=== PATIENT | male | born 1985 | race Caucasian/White ===

== ENCOUNTER 2016-11-02 10:39 | Emergency (ER) ==
[2016-11-02 10:45] VITALS: BP 131/83; TEMP 97; BMI 17.8
[2016-11-02] MEDS ORDERED: NORCO 10-325 PO STA (11:13)
[2016-11-02 11:32] LABS: BASOPHILS % (AUTO) 0.4 % (0.0-3.0); EOSINOPHILS % (AUTO) 0.4 % (0.0-7.0); HEMATOCRIT 41.6 % (42.0-52.0); HEMOGLOBIN 13.5 g/dl (14.0-18.0); IMMATURE GRANULOCYTE % (AUTO) 0.6 % (0.0-5.0); LYMPHOCYTES # (AUTO) 0.7 K/uL (0.60-3.4); MEAN CORPUSCULAR HEMOGLOBIN 30.3 pg (27.0-31.0); MEAN CORPUSCULAR HGB CONC 32.5 (31.8-35.4); MEAN CORPUSCULAR VOLUME 93.3 fl (80.0-94.0); MONOCYTES # (AUTO) 0.2 K/uL (0.4-2.0); MONOCYTES % (AUTO) 3.4 (0-10); NEUTROPHILS # (AUTO) 4.3 K/ul (2.0-6.9); NEUTROPHILS % (AUTO) 81.2; PLATELET COUNT 258 10^3/uL (140-440); RED BLOOD COUNT 4.46 10^6/ul (4.70-6.10)
[2016-11-02 11:48] LABS: FLU INTERNAL QC INTERNAL QC VALID; RAPID FLU A NEGATIVE (NEGATIVE); RAPID FLU B NEGATIVE (NEGATIVE)
[2016-11-02 11:52] LABS: ALBUMIN 4.5 g/dL (3.4-5.0); ALBUMIN/GLOBULIN RATIO 1.73; BILIRUBIN,TOTAL 0.52 mg/dL (0.00-1.20); BUN/CREATININE RATIO 13.63; CALCIUM 10.4 mg/dL (8.2-10.2); CREATININE 0.88 mg/dL (0.60-1.10); TOTAL PROTEIN 7.1 g/dL (6.4-8.2)
--- NOTE | 2016-11-02 12:32 | ED.PDOC ---
General ED Provider: Dr. ZECHARIAH WELSH Chief Complaint: Headache Stated Complaint: headache Time Seen by Physician: 11:00 (flu like symp but headache is new ) Mode of Arrival: Walk-In Information Source: Patient Exam Limitations: No limitations [facility] and Triage Documentation Reviewed and Agree: Yes (no trauma no neck pain ) Neurological Complaint Exam - Headache Complaint/Exam Onset: Gradual Duration: 2 days Symptoms Are: Still present Timing: Intermittent Episodes Lasting: Days Worst Headache Ever: No Initial Severity: Moderate Current Severity: Moderate Location: Diffuse Character: Reports: Typical headache Aggravating: Reports: None Alleviating: Reports: None Associated Signs and Symptoms: Denies: Dizziness, Seizure, Nausea, Vomiting, Sinus pressure, Fever, Neck pain, Neck stiffness, Decreased LOC, Visual changes Related History: Reports: Similar episode Related Surgical History: Reports: None SAH Risk Factors: Reports: None Meningitis Risk Factors: Reports: None SDH Risk Factors: Reports: None Temporal Arteritis Risk Factors: Reports: None Normal Head CT Within Last 12 Months: No Fundoscopic Exam: Present: Normal Findings Papilledema Present: No Temporal Artery Tenderness: Present: None Sinus Tenderness: Present: None TMJ Tenderness: Present: None Glascow Coma Scale (see protocol): 15 Meningeal Signs Positive: No Pain on Passive Flexion-Positive Kernig's: No ROM Limited In: No Limitiations Focal Weakness: Present: None Focal Sensory Loss: Present: None Gait: Normal Nystagmus Present: No Gag Reflex Present: Yes Babinski Sign: Negative Right, Negative Left Differential Diagnoses: Viral Syndrome Review of Systems - Review Of Systems Constitutional: Reports: Malaise Eyes: Reports: No symptoms Ears, Nose, Mouth, Throat: Reports: No symptoms Respiratory: Reports: Cough Cardiac: Reports: No symptoms GI: Reports: No symptoms : Reports: No symptoms Musculoskeletal: Reports: No symptoms Skin: Reports: No symptoms Neurological: Reports: Headache Endocrine: Reports: No symptoms Hematologic/Lymphatic: Reports: No symptoms All Other Systems: Reviewed and Negative Past Medical History - Past Medical History Endocrine: Reports: None Cardiovascular: Reports: None Respiratory: Reports: COPD, Asthma, Bronchitis Hematological: Reports: None Gastrointestinal: Reports: None Genitourinary: Reports: Kidney stones, Other (states same partner for two years no concern of STDs) Neuro/Psych: Reports: Anxiety, Depression, Bipolar Disorder, Schizophrenia, PTSD , Other (7 years clean) Musculoskeletal: Reports: Back Pain Cancer: Reports: None Other Pertinent Past Medical History: bronchitis, severe depression, PTSD, EED, paranoid schiz. - Surgical History General Surgical History: Reports: None - Family History Family History: Reports: Unknown - Social History Smoking Status: Heavy tobacco smoker Hx Substance Use: No Alcohol Screening: None Physical Exam - Physical Exam Appearance: Well-appearing, No pain distress, Well-nourished Eyes: DARIUS, EOMI, Conjunctiva clear ENT: Ears normal, Nose normal, Oropharynx normal Respiratory: Airway patent, Breath sounds clear, Breath sounds equal, Respirations nonlabored Cardiovascular: RRR, Pulses normal, No rub, No murmur GI/: Soft, Nontender, No masses, Bowel sounds normal, No Organomegaly Musculoskeletal: Normal strength, ROM intact, No edema, No calf tenderness Skin: Warm, Dry, Normal color Neurological: Sensation intact, Motor intact, Reflexes intact, Cranial nerves intact, Alert, Oriented Psychiatric: Affect appropriate, Mood appropriate Interpretation - Radiology Interpretation Radiology Interpretation By: Radiologist Critical Care Note - Critical Care Note Total Time (mins): 0 Course - Course Hematology/Chemistry: 11/02/16 11:25 11/02/16 11:25 Orders, Labs, Meds: Lab Review 11/02/16 11/02/16 11:15 11:25 WBC 5.30 RBC 4.46 L Hgb 13.5 L Hct 41.6 L MCV 93.3 MCH 30.3 MCHC 32.5 RDW Coeff of Seth 12.2 Plt Count 258 Immature Gran % (Auto) 0.6 Neut % (Auto) 81.2 Lymph % (Auto) 14.0 [place] % (Auto) 3.4 Eos % (Auto) 0.4 Baso % (Auto) 0.4 Immature Gran # (Auto) 0.0 Neut # 4.3 Lymph # 0.7 [place] # 0.2 L Eos # 0.0 Baso # 0.0 Sodium 140 Potassium 4.0 Chloride 105 Carbon Dioxide 27 Anion Gap 12.0 BUN 12 Creatinine 0.88 Estimated GFR (MDRD) 101.00 BUN/Creatinine Ratio 13.63 Glucose 111 H Calcium 10.4 H Total Bilirubin 0.52 AST 11 L ALT 12 Alkaline Phosphatase 56 Total Protein 7.1 Albumin 4.5 Globulin 2.6 Albumin/Globulin Ratio 1.73 Influenza A (Rapid) Negative Influenza B (Rapid) Negative Orders Category Date Time Status BLOOD CULTURE Stat LAB 11/02/16 11:25 Received CBC W/ AUTO DIFF Stat LAB 11/02/16 11:25 Completed COMPREHENSIVE METABOLIC PANEL Stat LAB 11/02/16 11:25 Completed MOLECULAR GROUP A STREP Stat LAB 11/02/16 11:15 Results RAPID FLU A/B Stat LAB 11/02/16 11:15 Completed STREP SCREEN Stat LAB 11/02/16 11:15 Results Hydrocodone Bit/Acetaminophen [[place] 10-325] MEDS 11/02/16 11:13 Discontinued 1 tab PO ONCE STA CT HEAD W/O CONTRAST Stat RADS 11/02/16 11:13 Ordered Medications Discontinued Medications Generic Name Dose Route Start Last Admin Trade Name Altagracia PRN Reason Stop Dose Admin Acetaminophen/Hydrocodone Bitart 1 tab 11/02/16 11:13 11/02/16 11:29 [place] 10-325 PO 11/02/16 11:14 1 tab ONCE STA Administration Vital Signs: Temp Pulse Resp BP Pulse Ox 11/02/16 10:42 97.0 F L 99 H 20 131/83 97 Departure - Departure Time of Disposition: 12:32 Disposition: HOME SELF-CARE Discharge Problem: Headache Instructions: Acute Headache (ED) Condition: Good Pt referred to PMD for follow-up: No Additional Instructions: Please call your Family Physician as soon as possible to schedule a follow-up appointment. Allergies/Adverse Reactions: Allergies tamsulosin HCl [From Flomax] Adverse Reaction (Verified 11/02/16 10:46) NAUSEA, MIGRAINES Home Medications: Ambulatory Orders Risperidone [Risperdal] 0.5 mg PO BID #60 09/02/16 Alprazolam [Xanax] 0.5 mg PO TID #90 09/30/16 [place] Carbonate [[place] Carbonate Er] 300 mg PO BEDTIME #30 09/30/16 Disposition Discussed With: Patient
--- NOTE | 2016-11-02 12:32 | CT ---
EXAM: CT BRAIN HISTORY: Head pain TECHNIQUE: CT brain without intravenous contrast. 5-mm axial sections with re-formations. COMPARISON: 07/04/2014 FINDINGS: Brain is unremarkable without distinct evidence of hemorrhage or large vessel distribution recent ischemic infarction. There is no suggestion of acute hydrocephalus or subdural fluid collection. N o mass or mass effect. Cranium is within normal limits. Mastoid air cells are aerated. The visualized paranasal sinuses are clear. IMPRESSION: No acute intracranial process.
== END 2016-11-02 12:48 | disposition home or self-care (01) ==
LOC: ED 10:39
DX: R51 Headache (principal)
CPT/HCPCS: 36415; 80053; 85025; 87040; 87651; 87804; 87880; 99282; 99283

== ENCOUNTER 2017-02-22 09:58 | Outpatient (CLI) ==
[2017-02-22 13:27] LABS: BASOPHILS % (AUTO) 0.5 % (0.0-3.0); EOSINOPHILS # (AUTO) 0.1 K/ul (0.0-0.7); EOSINOPHILS % (AUTO) 1.4 % (0.0-7.0); HEMATOCRIT 40.5 % (42.0-52.0); HEMOGLOBIN 13.4 g/dl (14.0-18.0); IMMATURE GRANULOCYTE % (AUTO) 0.3 % (0.0-5.0); LYMPHOCYTES # (AUTO) 1.2 K/uL (0.60-3.4); LYMPHOCYTES % (AUTO) 17.7 (10.0-50.0); MEAN CORPUSCULAR HEMOGLOBIN 31.6 pg (27.0-31.0); MEAN CORPUSCULAR HGB CONC 33.1 (31.8-35.4); MEAN CORPUSCULAR VOLUME 95.5 fl (80.0-94.0); MONOCYTES # (AUTO) 0.3 K/uL (0.4-2.0); MONOCYTES % (AUTO) 4.8 (0-10); NEUTROPHILS % (AUTO) 75.3; PLATELET COUNT 290 10^3/uL (140-440); RED BLOOD COUNT 4.24 10^6/ul (4.70-6.10); WHITE BLOOD COUNT 6.61 K/ul (4.2-10.2)
[2017-02-22 14:05] LABS: ALBUMIN 4.2 g/dL (3.4-5.0); ALBUMIN/GLOBULIN RATIO 1.68; ANION GAP 12.2; BILIRUBIN,TOTAL 0.43 mg/dL (0.00-1.20); BUN/CREATININE RATIO 11.49; CALCIUM 9.5 mg/dL (8.2-10.2); CREATININE 0.87 mg/dL (0.60-1.10); POTASSIUM 4.2 mmol/L (3.5-5.1); TOTAL PROTEIN 6.7 g/dL (6.4-8.2)
== END 2017-02-22 09:59 | disposition home or self-care (01) ==
LOC: LAB 09:58
PROVIDERS: ATTEND Nurse Practitioner Family
DX: G44.89 Other headache syndrome (principal); G54.8 Other nerve root and plexus disorders
CPT/HCPCS: 36415; 80053; 85025

== ENCOUNTER 2017-02-24 08:01 | Outpatient (CLI) ==
--- NOTE | 2017-02-24 09:47 | MRI ---
EXAM: Brain MRI without contrast. HISTORY: Headache syndrome. COMPARISON: Head CT 11/02/2016 and brain MRI 10/23/2014. TECHNIQUE: Multiplanar, multisequence MR images were acquired of the brain without contrast. FINDINGS: The midline structures are central and the craniocervical junction is unremarkable. The ventricles and sulci are normal in size and configuration. There are no abnormal extra-axial fluid collections. The brain parenchyma has no diffusion restriction to suggest acute hypoperfusion or infarction. The re are no abnormal T2 hyperintensities or foci of dark gradient echo signal. The corpus callosum is normal in configuration. There is a small 2-mm thin-walled pineal cyst. The pituitary gland is un remarkable. There are no intraorbital masses. There is minor leftward nasal septal deviation with a small spur. Paranasal sinuses, middle ears and mastoids are clear. Flow voids are present in the major intracranial arteries and dural venous sinuses. IMPRESSION: No intracranial mass, hemorrhage or acute cerebral infarct. No change compared to 201 4.
== END 2017-02-24 08:02 | disposition home or self-care (01) ==
LOC: RAD 08:01
PROVIDERS: ATTEND Nurse Practitioner Family
DX: G44.89 Other headache syndrome (principal)

== ENCOUNTER 2017-05-26 12:03 | Outpatient (CLI) ==
[2017-05-26 12:24] LABS: BASOPHILS # (AUTO) 0.1 K/uL (0-0.2); BASOPHILS % (AUTO) 0.9 % (0.0-3.0); EOSINOPHILS # (AUTO) 0.1 K/ul (0.0-0.7); EOSINOPHILS % (AUTO) 2.1 % (0.0-7.0); HEMATOCRIT 39.8 % (42.0-52.0); HEMOGLOBIN 13.7 g/dl (14.0-18.0); IMMATURE GRANULOCYTE % (AUTO) 0.2 % (0.0-5.0); LYMPHOCYTES # (AUTO) 1.8 K/uL (0.60-3.4); LYMPHOCYTES % (AUTO) 30.6 (10.0-50.0); MEAN CORPUSCULAR HGB CONC 34.4 (31.8-35.4); MONOCYTES # (AUTO) 0.4 K/uL (0.4-2.0); MONOCYTES % (AUTO) 6.5 (0-10); NEUTROPHILS # (AUTO) 3.5 K/ul (2.0-6.9); NEUTROPHILS % (AUTO) 59.7; PLATELET COUNT 293 10^3/uL (140-440); RED BLOOD COUNT 4.42 10^6/ul (4.70-6.10); WHITE BLOOD COUNT 5.85 K/ul (4.2-10.2)
[2017-05-26 12:29] LABS: ADD URINE MICROSCOPIC YES; BILIRUBIN,URINE Negative (NEGATIVE); KETONES,URINE Negative (NEGATIVE); LEUKOCYTE ESTERASE ,URINE 1+ (NEGATIVE); NITRITE,URINE Negative (NEGATIVE); PH,URINE 7.5 (5-9); PROTEIN,URINE Trace (NEGATIVE); URINE, BLOOD Trace-intact (NEGATIVE)
[2017-05-26 12:41] LABS: COCAIN SCREEN,URINE NEGATIVE (NEGATIVE)
[2017-05-26 12:49] LABS: ALBUMIN 4.2 g/dL (3.4-5.0); ALBUMIN/GLOBULIN RATIO 1.62; BILIRUBIN,TOTAL 0.35 mg/dL (0.00-1.20); CALCIUM 10.2 mg/dL (8.2-10.2); TOTAL PROTEIN 6.8 g/dL (6.4-8.2)
== END 2017-05-26 12:04 | disposition home or self-care (01) ==
LOC: LAB 12:03
PROVIDERS: ATTEND Nurse Practitioner Family
DX: G25.71 Drug induced akathisia (principal); G54.8 Other nerve root and plexus disorders; F41.8 Other specified anxiety disorders
CPT/HCPCS: 36415; 80053; 80306; 81001; 85025

== ENCOUNTER 2017-05-27 10:32 | Outpatient (CLI) ==
[2017-05-27 11:20] LABS: IMMATURE RETIC FRACTION 4.7; RETICULOCYTE % 0.81 %
[2017-05-27 12:32] LABS: FERRITIN 28.07 ng/mL (21.81-274.66)
== END 2017-05-27 10:33 | disposition home or self-care (01) ==
LOC: LAB 10:32
PROVIDERS: ATTEND Nurse Practitioner Family
DX: D64.9 Anemia, unspecified (principal)
CPT/HCPCS: 36415; 82607; 82728; 83540; 83550; 84466; 85045

== ENCOUNTER 2017-09-19 09:57 | Emergency (ER) ==
[2017-09-19 10:09] VITALS: BP 135/93; TEMP 99.6; BMI 17.4
[2017-09-19] MEDS ORDERED: ATIVAN IM STA (10:25)
[2017-09-19 10:35] LABS: BASOPHILS % (AUTO) 0.5 % (0.0-3.0); EOSINOPHILS # (AUTO) 0.1 K/ul (0.0-0.7); EOSINOPHILS % (AUTO) 0.9 % (0.0-7.0); HEMATOCRIT 39.9 % (42.0-52.0); HEMOGLOBIN 13.8 g/dl (14.0-18.0); IMMATURE GRANULOCYTE % (AUTO) 0.3 % (0.0-5.0); LYMPHOCYTES # (AUTO) 1.3 K/uL (0.60-3.4); LYMPHOCYTES % (AUTO) 19.1 (10.0-50.0); MEAN CORPUSCULAR HEMOGLOBIN 31.4 pg (27.0-31.0); MEAN CORPUSCULAR HGB CONC 34.6 (31.8-35.4); MEAN CORPUSCULAR VOLUME 90.7 fl (80.0-94.0); MONOCYTES # (AUTO) 0.3 K/uL (0.4-2.0); MONOCYTES % (AUTO) 5.2 (0-10); NEUTROPHILS # (AUTO) 4.9 K/ul (2.0-6.9); PLATELET COUNT 272 10^3/uL (140-440); WHITE BLOOD COUNT 6.59 K/ul (4.2-10.2)
[2017-09-19 10:58] LABS: ACETAMINOPHEN < 3 ug/ml (10-30); ALANINE AMINOTRANSFERASE 11 U/L (12-78); ALBUMIN 3.9 g/dL (3.4-5.0); ALKALINE PHOSPHATASE 56 U/L (50-136); ANION GAP 10.8; ASPARTATE AMINO TRANSFERASE 9 U/L (15-37); BILIRUBIN,TOTAL 0.28 mg/dL (0.00-1.20); BLOOD UREA NITROGEN 9 mg/dL (7-18); BUN/CREATININE RATIO 11.84; CALCIUM 9.5 mg/dL (8.2-10.2); CARBON DIOXIDE 26 mmol/L (21-32); CHLORIDE 109 mmol/L (98-107); CREATININE 0.76 mg/dL (0.60-1.10); GLUCOSE 102 mg/dL (70-100); POTASSIUM 3.8 mmol/L (3.5-5.1); SALICYLATE < 5.0 mg/dL (2.8-20.0); SODIUM 142 mmol/L (136-145); TOTAL PROTEIN 6.5 g/dL (6.4-8.2)
[2017-09-19 11:07] LABS: ADD URINE MICROSCOPIC YES; BILIRUBIN,URINE Negative (NEGATIVE); KETONES,URINE Negative (NEGATIVE); LEUKOCYTE ESTERASE ,URINE Negative (NEGATIVE); NITRITE,URINE Negative (NEGATIVE); PROTEIN,URINE Negative (NEGATIVE); URINE, BLOOD Trace-intact (NEGATIVE)
[2017-09-19 11:15] LABS: BACTERIA,URINE TRACE (NOT PRESENT)
[2017-09-19 11:19] LABS: COCAIN SCREEN,URINE NEGATIVE (NEGATIVE)
--- NOTE | 2017-09-19 11:52 | ED.PDOC ---
General ED Provider: Dr. ZECHARIAH WELSH Chief Complaint: Behavioral Complaint Stated Complaint: anxiety Time Seen by Physician: 10:00 Mode of Arrival: Walk-In Information Source: Patient Exam Limitations: No limitations [facility] and T[facility] Documentation Reviewed and Agree: Yes Psychological Complaint Exam - Psychiatric Complaint/Exam Patient Complains Of: Present: Depression. Absent: Suicidal thoughts, Suicidal gestures, Other Onset/Duration: chronic Symptoms Are: Still present Timing: Intermittent Episodes Lasting: Weeks Initial Severity: Moderate Current Severity: Mild Character: Present: Depressed, Fearful, Anxious, Angry, Frustrated. Absent: Manic Aggravating: Reports: None Related History: Denies: Suicidal thoughts, Suicidal plan, Suicidal gestures, Homicidal thoughts, Homicidal plan, Homicidal gestures, Prior attempts, Drug ingestion Completed Suicide Risk Factors: Male Patient In Custody Of Police: No Social Withdrawal Present: Yes Social Isolation Present: Yes Prior Suicide Attempt: No Injury From Prior Suicide Attempt: No Related Surgical History: Reports: None Patient Uncooperative For Exam: No Mood: Present: Agitated Appearance: Present: Clean Thought Process: Present: Logical Insight: Present: Good Memory: Intact Judgement: Normal Danger To Others: No Patient Medically Stable For: Psych evaluation Differential Diagnoses: Anxiety, Depression Review of Systems - Review Of Systems Constitutional: Reports: No symptoms Eyes: Reports: No symptoms Ears, Nose, Mouth, Throat: Reports: No symptoms Respiratory: Reports: No symptoms Cardiac: Reports: No symptoms GI: Reports: No symptoms : Reports: No symptoms Musculoskeletal: Reports: No symptoms Skin: Reports: No symptoms Neurological: Reports: Anxiety, Depressed, Cognitive dysfunction Endocrine: Reports: No symptoms Hematologic/Lymphatic: Reports: No symptoms All Other Systems: Reviewed and Negative Past Medical History - Past Medical History Endocrine: Reports: None Cardiovascular: Reports: None Respiratory: Reports: COPD, Asthma, Bronchitis Hematological: Reports: None Gastrointestinal: Reports: None Genitourinary: Reports: Kidney stones, Other (states same partner for two years no concern of STDs) Neuro/Psych: Reports: Anxiety, Depression, Bipolar Disorder, Schizophrenia, PTSD , Other (7 years clean) Musculoskeletal: Reports: Back Pain Cancer: Reports: None Other Pertinent Past Medical History: bronchitis, severe depression, PTSD, EED, paranoid schiz. - Surgical History General Surgical History: Reports: None - Family History Family History: Reports: Unknown - Social History Smoking Status: Heavy tobacco smoker Hx Substance Use: No Alcohol Screening: None Physical Exam - Physical Exam Appearance: Well-appearing, No pain distress, Well-nourished Eyes: DARIUS, EOMI, Conjunctiva clear ENT: Ears normal, Nose normal, Oropharynx normal Respiratory: Airway patent, Breath sounds clear, Breath sounds equal, Respirations nonlabored Cardiovascular: RRR, Pulses normal, No rub, No murmur GI/: Soft, Nontender, No masses, Bowel sounds normal, No Organomegaly Musculoskeletal: Normal strength, ROM intact, No edema, No calf tenderness Skin: Warm, Dry, Normal color Neurological: Sensation intact, Motor intact, Reflexes intact, Cranial nerves intact, Alert, Oriented Psychiatric: Affect appropriate, Mood appropriate Critical Care Note - Critical Care Note Total Time (mins): 0 Course - Course Hematology/Chemistry: 09/19/17 10:30 09/19/17 10:30 Orders, Labs, Meds: Lab Review 09/19/17 09/19/17 09/19/17 10:30 10:30 10:45 WBC 6.59 RBC 4.40 L Hgb 13.8 L Hct 39.9 L MCV 90.7 MCH 31.4 H MCHC 34.6 RDW Coeff of Seth 12.3 Plt Count 272 Immature Gran % (Auto) 0.3 Neut % (Auto) 74.0 Lymph % (Auto) 19.1 [place] % (Auto) 5.2 Eos % (Auto) 0.9 Baso % (Auto) 0.5 Immature Gran # (Auto) 0.0 Neut # 4.9 Lymph # 1.3 [place] # 0.3 L Eos # 0.1 Baso # 0.0 Sodium 142 Potassium 3.8 Chloride 109 H Carbon Dioxide 26 Anion Gap 10.8 BUN 9 Creatinine 0.76 Estimated GFR (MDRD) 119.00 BUN/Creatinine Ratio 11.84 Glucose 102 H Calcium 9.5 Total Bilirubin 0.28 AST 9 L ALT 11 L Alkaline Phosphatase 56 Total Protein 6.5 Albumin 3.9 Globulin 2.6 Albumin/Globulin Ratio 1.50 Urine Color Urine Clarity Urine pH Ur Specific [place] Urine Protein Urine Glucose (UA) Urine Ketones Urine Blood Urine Nitrite Urine Bilirubin Urine Urobilinogen Ur Leukocyte Esterase Urine Microscopic RBC Urine Microscopic WBC Ur Squamous Epith Cells Amorphous Sediment Urine Bacteria Hyaline Casts Salicylate Level mg/dL < 5.0 Urine Opiates Screen Negative Ur Oxycodone Screen Negative Urine Methadone Screen Negative Ur Propoxyphene Screen Negative Acetaminophen < 3 L Ur Barbiturates Screen Negative U Tricyclic Antidepress Negative Ur Phencyclidine Scrn Negative Ur Amphetamine Screen Negative U Methamphetamines Scrn Negative U Benzodiazepines Scrn Positive Urine Cocaine Screen Negative U Cannabinoids Screen Negative Plasma/Serum Alcohol < 10.0 09/19/17 10:45 WBC RBC Hgb Hct MCV MCH MCHC RDW Coeff of Seth Plt Count Immature Gran % (Auto) Neut % (Auto) Lymph % (Auto) [place] % (Auto) Eos % (Auto) Baso % (Auto) Immature Gran # (Auto) Neut # Lymph # [place] # Eos # Baso # Sodium Potassium Chloride Carbon Dioxide Anion Gap BUN Creatinine Estimated GFR (MDRD) BUN/Creatinine Ratio Glucose Calcium Total Bilirubin AST ALT Alkaline Phosphatase Total Protein Albumin Globulin Albumin/Globulin Ratio Urine Color Yellow Urine Clarity Clear Urine pH 8.0 Ur Specific [place] 1.020 Urine Protein Negative Urine Glucose (UA) Negative Urine Ketones Negative Urine Blood Trace-intact Urine Nitrite Negative Urine Bilirubin Negative Urine Urobilinogen 0.2 Ur Leukocyte Esterase Negative Urine Microscopic RBC 5-10 Urine Microscopic WBC 0-2 Ur Squamous Epith Cells 0-2 Amorphous Sediment 2+ Urine Bacteria Trace Hyaline Casts 0-2 Salicylate Level mg/dL Urine Opiates Screen Ur Oxycodone Screen Urine Methadone Screen Ur Propoxyphene Screen Acetaminophen Ur Barbiturates Screen U Tricyclic Antidepress Ur Phencyclidine Scrn Ur Amphetamine Screen U Methamphetamines Scrn U Benzodiazepines Scrn Urine Cocaine Screen U Cannabinoids Screen Plasma/Serum Alcohol Orders Category Date Time Status EKG-(ED ONLY) Stat CARDIO 09/19/17 10:25 Completed ACETAMINOPHEN Stat LAB 09/19/17 10:30 Completed BLOOD ALCOHOL Stat LAB 09/19/17 10:30 Completed CBC W/ AUTO DIFF Stat LAB 09/19/17 10:30 Completed COMPREHENSIVE METABOLIC PANEL Stat LAB 09/19/17 10:30 Completed DRUG SCREEN, URINE, RAPID Stat LAB 09/19/17 10:45 Completed SALICYLATE Stat LAB 09/19/17 10:30 Completed URINALYSIS C & S IF INDICATED Stat LAB 09/19/17 10:45 Completed Lorazepam Inj [Ativan] MEDS 09/19/17 10:25 Discontinued 1 mg IM ONCE STA Medications Discontinued Medications Generic Name Dose Route Start Last Admin Trade Name Freq PRN Reason Stop Dose Admin Lorazepam 1 mg 09/19/17 10:25 09/19/17 10:55 Ativan IM 09/19/17 10:26 1 mg ONCE STA Administration Vital Signs: Temp Pulse Resp BP Pulse Ox 09/19/17 09:57 99.6 F 105 H 20 135/93 H 98 Departure - Departure Time of Disposition: 11:51 Disposition: HOME SELF-CARE Discharge Problem: Problem behavior, Anxiety Instructions: Anxiety (ED) Condition: Good Pt referred to PMD for follow-up: Yes Additional Instructions: Please call your Family Physician as soon as possible to schedule a follow-up appointment. Allergies/Adverse Reactions: Allergies tamsulosin HCl [From Flomax] Adverse Reaction (Verified 09/19/17 10:06) NAUSEA, MIGRAINES Home Medications: Ambulatory Orders [place] Carbonate [[place] Carbonate Er] 300 mg PO BID #60 09/30/16 Trazodone HCl 100 mg PO BEDTIME #30 02/17/17 Benztropine Mesylate 1 mg PO DAILY #30 03/03/17 Cyclobenzaprine HCl 10 mg PO BID PRN 05/16/17 Alprazolam [Xanax] 0.5 mg PO BID 09/19/17 Disposition Discussed With: Patient
== END 2017-09-19 11:56 | disposition home or self-care (01) ==
LOC: ED 09:57
DX: F41.9 Anxiety disorder, unspecified (principal); F69 Unspecified disorder of adult personality and behavior; F17.210 Nicotine dependence, cigarettes, uncomplicated
CPT/HCPCS: 36415; 80053; 80306; 80307; 81001; 85025; 93005; 93010; 96372; 99283

== ENCOUNTER 2017-12-03 19:48 | Emergency (ER) ==
[2017-12-03 19:58] VITALS: BP 133/91; TEMP 98.2; BMI 18.2
--- NOTE | 2017-12-03 20:46 | CT ---
EXAM: CT head without contrast. HISTORY: Altered mental status. PROCEDURE: Contiguous axial CT images of the head without contrast with coronal and sagittal reforma ts. FINDINGS: The ventricles and basal cisterns are normal in size and configuration. No evidence of ma ss or midline shift. No intracranial hemorrhage or evidence of large vessel infarct. No extra-axial fluid collection. The paranasal sinuses and mastoid air cells are well-aerated. Impression: Negative CT of the head.
--- NOTE | 2017-12-03 21:37 | ED.PDOC ---
General ED Provider: Dr. DAVID STALLINGS Chief Complaint: Altered Mental Status Stated Complaint: Patient was given Klonopin,by psychiatrist, ever since he is been not by himself, so girl friend told him to get checked. Time Seen by Physician: 21:38 Mode of Arrival: Walk-In Information Source: Patient Primary Care Provider: DAVID STALLINGS-[facility] Nursing and Triage Documentation Reviewed and Agree: Yes Reviewed sepsis parameters & appropriate labs ordered?: No System Inflammatory Response Syndrome: Not Applicable Sepsis Protocol: For patient's 13 years and over: Temp is 96.8 and below OR 101 and greater Pulse >90 BPM Resp >20/minute Acutely Altered Mental Status Are patient's symptoms suggestive of a new infection, such as: -Pneumonia -Skin, Soft Tissue -Endocarditis -UTI -Bone, Joint Infection -Implantable Device -Acute Abdominal Infection -Wound Infection -Meningitis -Blood Stream Catheter Infection -Unknown Neurological Complaint Exam - Altered Mental Status Complaint/Exam Current Mental Status: Confusion (but now better) Onset: Gradual Symptoms Are: Resolved Timing: Intermittent Episodes Lasting: Days Initial Severity: Moderate Current Severity: None Eye Deviation Present: No Character: Reports: Confusion, Responsiveness Aggravating: Reports: Medication change Alleviating: Reports: None Associated Signs and Symptoms: Denies: Dizziness, Weakness, Headache, Fever, Illness, Nuchal rigidity, Seizure, Nausea, Vomiting, Recently depressed, Trauma Cardiac Risk Factors: Reports: None CVA Risk Factors: Reports: None Related Surgical History: Reports: None Carotid Bruit Present: No Nystagmus Present: No Gag Reflex Present: Yes Meningeal Signs Positive: No Focal Weakness: Present: None Focal Sensory Loss: Present: None Gait: Normal [id number]: Normal Findings Babinski Sign: Negative Right, Negative Left Heel to Toe Normal: Yes Signs of Injury: Present: Normal findings Differential Diagnoses: Medication reaction Review of Systems - Review Of Systems Constitutional: Reports: No symptoms Eyes: Reports: No symptoms Ears, Nose, Mouth, Throat: Reports: No symptoms Respiratory: Reports: No symptoms Cardiac: Reports: No symptoms GI: Reports: No symptoms : Reports: No symptoms Musculoskeletal: Reports: No symptoms Skin: Reports: No symptoms Neurological: Reports: No symptoms Endocrine: Reports: No symptoms Hematologic/Lymphatic: Reports: No symptoms All Other Systems: Reviewed and Negative Past Medical History - Past Medical History Previously Healthy: Yes Endocrine: Reports: None Cardiovascular: Reports: None Respiratory: Reports: COPD, Asthma, Bronchitis Hematological: Reports: None Gastrointestinal: Reports: None Genitourinary: Reports: Kidney stones, Other (states same partner for two years no concern of STDs) Neuro/Psych: Reports: Anxiety, Depression, Bipolar Disorder, Schizophrenia, PTSD , Other (7 years clean) Musculoskeletal: Reports: Back Pain Cancer: Reports: None Other Pertinent Past Medical History: bronchitis, severe depression, PTSD, EED, paranoid schiz. - Surgical History General Surgical History: Reports: None - Family History Family History: Reports: Unknown - Social History Smoking Status: Current every day smoker, Light tobacco smoker Smoking Cessation Counseling Time: > 3 min - 10 min Hx Substance Use: No Alcohol Screening: None - Immunizations Tetanus Shot up to Date: No Physical Exam - Physical Exam Appearance: Well-appearing, No pain distress, Well-nourished Eyes: DARIUS, EOMI, Conjunctiva clear ENT: Ears normal, Nose normal, Oropharynx normal Respiratory: Airway patent, Breath sounds clear, Breath sounds equal, Respirations nonlabored Cardiovascular: RRR, Pulses normal, No rub, No murmur GI/: Soft, Nontender, No masses, Bowel sounds normal, No Organomegaly Musculoskeletal: Normal strength, ROM intact, No edema, No calf tenderness Skin: Warm, Dry, Normal color Neurological: Sensation intact, Motor intact, Reflexes intact, Cranial nerves intact, Alert, Oriented Psychiatric: Affect appropriate, Mood appropriate Critical Care Note - Critical Care Note Total Time (mins): 15 Course - Course Hematology/Chemistry: 12/03/17 20:45 12/03/17 20:45 Orders, Labs, Meds: Lab Review 12/03/17 12/03/17 12/03/17 20:45 20:45 20:45 WBC 6.99 RBC 4.35 L Hgb 13.7 L Hct 39.9 L MCV 91.7 MCH 31.5 H MCHC 34.3 RDW Coeff of Seth 11.9 Plt Count 260 Immature Gran % (Auto) 0.3 Neut % (Auto) 57.9 Lymph % (Auto) 32.2 [place] % (Auto) 6.9 Eos % (Auto) 2.1 Baso % (Auto) 0.6 Immature Gran # (Auto) 0.0 Neut # 4.1 Lymph # 2.3 [place] # 0.5 Eos # 0.2 Baso # 0.0 Sodium 143 Potassium 4.0 Chloride 107 Carbon Dioxide 27 Anion Gap 13.0 BUN 9 Creatinine 0.82 Estimated GFR (MDRD) 109.00 BUN/Creatinine Ratio 10.97 Glucose 95 Calcium 9.5 Total Bilirubin < 0.3 AST 9 L ALT 6 L Alkaline Phosphatase 52 Ammonia 15 Total Protein 6.6 Albumin 4.0 Globulin 2.6 Albumin/Globulin Ratio 1.54 Urine Color Urine Clarity Urine pH Ur Specific [place] Urine Protein Urine Glucose (UA) Urine Ketones Urine Blood Urine Nitrite Urine Bilirubin Urine Urobilinogen Ur Leukocyte Esterase Urine Microscopic RBC Urine Microscopic WBC Ur Squamous Epith Cells Amorphous Sediment Urine Bacteria Urine Yeast Salicylate Level mg/dL < 5.0 Urine Opiates Screen Ur Oxycodone Screen Urine Methadone Screen Ur Propoxyphene Screen Acetaminophen < 3 L Ur Barbiturates Screen U Tricyclic Antidepress Ur Phencyclidine Scrn Ur Amphetamine Screen U Methamphetamines Scrn U Benzodiazepines Scrn Urine Cocaine Screen U Cannabinoids Screen Plasma/Serum Alcohol < 10.0 12/03/17 12/03/17 20:46 20:46 WBC RBC Hgb Hct MCV MCH MCHC RDW Coeff of Seth Plt Count Immature Gran % (Auto) Neut % (Auto) Lymph % (Auto) [place] % (Auto) Eos % (Auto) Baso % (Auto) Immature Gran # (Auto) Neut # Lymph # [place] # Eos # Baso # Sodium Potassium Chloride Carbon Dioxide Anion Gap BUN Creatinine Estimated GFR (MDRD) BUN/Creatinine Ratio Glucose Calcium Total Bilirubin AST ALT Alkaline Phosphatase Ammonia Total Protein Albumin Globulin Albumin/Globulin Ratio Urine Color Yellow Urine Clarity Cloudy Urine pH 7.5 Ur Specific [place] 1.015 Urine Protein Trace Urine Glucose (UA) Negative Urine Ketones Negative Urine Blood Trace-intact Urine Nitrite Negative Urine Bilirubin Negative Urine Urobilinogen 0.2 Ur Leukocyte Esterase Trace Urine Microscopic RBC 0-2 Urine Microscopic WBC 0-2 Ur Squamous Epith Cells Not present Amorphous Sediment 1+ Urine Bacteria Trace Urine Yeast Trace Salicylate Level mg/dL Urine Opiates Screen Negative Ur Oxycodone Screen Negative Urine Methadone Screen Negative Ur Propoxyphene Screen Negative Acetaminophen Ur Barbiturates Screen Negative U Tricyclic Antidepress Negative Ur Phencyclidine Scrn Negative Ur Amphetamine Screen Negative U Methamphetamines Scrn Negative U Benzodiazepines Scrn Negative Urine Cocaine Screen Negative U Cannabinoids Screen Negative Plasma/Serum Alcohol Orders Category Date Time Status ACETAMINOPHEN Stat LAB 12/03/17 20:45 Completed AMMONIA Stat LAB 12/03/17 20:45 Completed BLOOD ALCOHOL Stat LAB 12/03/17 20:45 Completed CBC W/ AUTO DIFF Stat LAB 12/03/17 20:45 Completed COMPREHENSIVE METABOLIC PANEL Stat LAB 12/03/17 20:45 Completed DRUG SCREEN, URINE, RAPID Stat LAB 12/03/17 20:46 Completed SALICYLATE Stat LAB 12/03/17 20:45 Completed URINALYSIS C & S IF INDICATED Stat LAB 12/03/17 20:[address] HEAD W/O CONTRAST Stat RADS 12/03/17 20:29 Completed Vital Signs: Temp Pulse Resp BP Pulse Ox 12/03/17 19:52 98.2 F 86 18 133/91 H 98 Departure - Departure Time of Disposition: 21:34 Disposition: HOME SELF-CARE Discharge Problem: Altered mental status Instructions: Altered Mental Status (ED) Condition: Stable Pt referred to PMD for follow-up: Yes IPMP verified?: No Additional Instructions: Take half a dose of klonopin po bid as needed only. keep f/u with psychiatrist Allergies/Adverse Reactions: Allergies tamsulosin HCl [From Flomax] Adverse Reaction (Verified 12/03/17 20:06) NAUSEA, MIGRAINES Home Medications: Ambulatory Orders [place] Carbonate [[place] Carbonate Er] 300 mg PO DAILY #60 09/30/16 Trazodone HCl 100 mg PO BID #30 02/17/17 Benztropine Mesylate 1 mg PO BID 12/03/17 Clonazepam [Klonopin] 1 mg PO BID PRN 12/03/17 Divalproex Sodium [Depakote] 500 mg PO BEDTIME 12/03/17 [place] Carbonate 600 mg PO BEDTIME 12/03/17 Risperidone [Risperdal] 1 mg PO Q12H 12/03/17 Disposition Discussed With: Patient
== END 2017-12-03 21:38 | disposition home or self-care (01) ==
LOC: ED 19:48
DX: R41.82 Altered mental status, unspecified (principal); F17.210 Nicotine dependence, cigarettes, uncomplicated; Z79.899 Other long term (current) drug therapy
CPT/HCPCS: 36415; 80053; 80306; 80307; 81001; 82140; 85025; 99283

== ENCOUNTER 2018-01-29 11:17 | Emergency (ER) ==
[2018-01-29 11:18] VITALS: BMI 18.2
[2018-01-29 11:23] VITALS: BP 104/72; TEMP 98
--- NOTE | 2018-01-29 11:49 | ED.PDOC ---
General ED Provider: Dr. KATIE HOOPER Chief Complaint: Behavioral Complaint Stated Complaint: Patient is a 32 year old male who comes to the ER with complains of having problems with thinking, hallucations, rage and also having trouble with keeping balance. Denies any overdose. Has been taking his normal prescriptions as precribed. States he has an Apt in the morning. Time Seen by Physician: 11:49 Mode of Arrival: Walk-In Information Source: Patient Exam Limitations: No limitations [facility] Nursing and Triage Documentation Reviewed and Agree: Yes Reviewed sepsis parameters & appropriate labs ordered?: No System Inflammatory Response Syndrome: Not Applicable Sepsis Protocol: For patient's 13 years and over: Temp is 96.8 and below OR 101 and greater Pulse >90 BPM Resp >20/minute Acutely Altered Mental Status Are patient's symptoms suggestive of a new infection, such as: -Pneumonia -Skin, Soft Tissue -Endocarditis -UTI -Bone, Joint Infection -Implantable Device -Acute Abdominal Infection -Wound Infection -Meningitis -Blood Stream Catheter Infection -Unknown System Inflammatory Response Syndrome: Not Applicable Review of Systems - Review Of Systems Constitutional: Reports: No symptoms Neurological: Reports: Anxiety, Depressed All Other Systems: Reviewed and Negative Past Medical History - Past Medical History Previously Healthy: Yes Endocrine: Reports: None Cardiovascular: Reports: None Respiratory: Reports: COPD, Asthma, Bronchitis Hematological: Reports: None Gastrointestinal: Reports: None Genitourinary: Reports: Kidney stones, Other (states same partner for two years no concern of STDs) Neuro/Psych: Reports: Anxiety, Depression, Bipolar Disorder, Schizophrenia, PTSD , Other (7 years clean) Musculoskeletal: Reports: Back Pain Cancer: Reports: None Other Pertinent Past Medical History: bronchitis, severe depression, PTSD, EED, paranoid schiz. - Surgical History General Surgical History: Reports: None - Family History Family History: Reports: Unknown - Social History Smoking Status: Current some day smoker Hx Substance Use: No Alcohol Screening: None - Immunizations Tetanus Shot up to Date: Yes Physical Exam - Physical Exam Appearance: Well-appearing, No pain distress, Well-nourished Eyes: DARIUS, EOMI, Conjunctiva clear ENT: Ears normal, Nose normal, Oropharynx normal Respiratory: Airway patent, Breath sounds clear, Breath sounds equal, Respirations nonlabored Cardiovascular: RRR, Pulses normal, No rub, No murmur GI/: Soft, Nontender, No masses, Bowel sounds normal, No Organomegaly Musculoskeletal: Normal strength, ROM intact, No edema, No calf tenderness Skin: Warm, Dry, Normal color Neurological: Sensation intact, Motor intact, Reflexes intact, Cranial nerves intact, Alert, Oriented Psychiatric: Anxious Critical Care Note - Critical Care Note Total Time (mins): 0 Comments: counsellor seen the patient and determined to be stable will be followed up with the clinic in the morning. Course - Course Hematology/Chemistry: 01/29/18 11:55 01/29/18 11:55 Orders, Labs, Meds: Lab Review 01/29/18 01/29/18 01/29/18 11:55 11:55 12:50 WBC 4.95 RBC 4.54 L Hgb 14.1 Hct 42.0 MCV 92.5 MCH 31.1 H MCHC 33.6 RDW Coeff of Seth 11.6 Plt Count 205 Immature Gran % (Auto) 0.2 Neut % (Auto) 60.2 Lymph % (Auto) 30.1 [place] % (Auto) 5.9 Eos % (Auto) 3.0 Baso % (Auto) 0.6 Immature Gran # (Auto) 0.0 Neut # (Auto) 3.0 Lymph # (Auto) 1.5 [place] # (Auto) 0.3 L Eos # (Auto) 0.2 Baso # (Auto) 0.0 Sodium 140 Potassium 4.6 Chloride 105 Carbon Dioxide 25 Anion Gap 14.6 BUN 14 Creatinine 0.90 Estimated GFR (MDRD) 98.00 BUN/Creatinine Ratio 15.55 Glucose 104 H Calcium 10.0 Total Bilirubin 0.5 AST 9 L ALT 6 L Alkaline Phosphatase 53 Total Protein 6.3 L Albumin 3.9 Globulin 2.4 Albumin/Globulin Ratio 1.63 TSH 0.502 Salicylate Level mg/dL < 5.0 Urine Opiates Screen Negative Ur Oxycodone Screen Negative Urine Methadone Screen Negative Ur Propoxyphene Screen Negative Acetaminophen < 3 L Ur Barbiturates Screen Negative U Tricyclic Antidepress Negative Ur Phencyclidine Scrn Negative Ur Amphetamine Screen Negative U Methamphetamines Scrn Negative U Benzodiazepines Scrn Positive Urine Cocaine Screen Negative U Cannabinoids Screen Negative Plasma/Serum Alcohol < 10.0 Orders Category Date Time Status ACETAMINOPHEN Stat LAB 01/29/18 11:55 Completed BLOOD ALCOHOL Stat LAB 01/29/18 11:55 Completed CBC W/ AUTO DIFF Stat LAB 01/29/18 11:55 Completed COMPREHENSIVE METABOLIC PANEL Stat LAB 01/29/18 11:55 Completed DRUG SCREEN, URINE, RAPID Stat LAB 01/29/18 12:50 Completed SALICYLATE Stat LAB 01/29/18 11:55 Completed THYROID STIMULATING HORMONE Stat LAB 01/29/18 11:55 Completed URINALYSIS C & S IF INDICATED Stat LAB 01/29/18 12:57 Ordered Hydroxyzine HCl [Atarax] MEDS 01/29/18 15:06 Discontinued 25 mg PO ONCE STA Lorazepam [Ativan] MEDS 01/29/18 12:48 Discontinued 0.5 mg PO ONCE STA Medications Discontinued Medications Generic Name Dose Route Start Last Admin Trade Name Freq PRN Reason Stop Dose Admin Hydroxyzine HCl 25 mg 01/29/18 15:06 01/29/18 15:31 Atarax PO 01/29/18 15:07 25 mg ONCE STA Administration Lorazepam 0.5 mg 01/29/18 12:48 01/29/18 13:28 Ativan PO 01/29/18 12:49 0.5 mg ONCE STA Administration Vital Signs: Temp Pulse Resp BP Pulse Ox 01/29/18 11:19 98 F 91 H 16 104/72 97 Departure - Departure Time of Disposition: 16:35 Disposition: HOME SELF-CARE Discharge Problem: Paranoid psychosis, Anxiety Instructions: Paranoid Personality Disorder (ED) Condition: Stable Pt referred to PMD for follow-up: Yes IPMP verified?: No Additional Instructions: continue home medications Follow up with the counsellor in the morning. Allergies/Adverse Reactions: Allergies tamsulosin HCl [From Flomax] Adverse Reaction (Verified 01/29/18 11:26) NAUSEA, MIGRAINES Home Medications: Ambulatory Orders [place] Carbonate [[place] Carbonate Er] 300 mg PO DAILY #60 09/30/16 Trazodone HCl 100 mg PO BID #30 02/17/17 Benztropine Mesylate 1 mg PO BID 12/03/17 Clonazepam [Klonopin] 1 mg PO BID PRN 12/03/17 Divalproex Sodium [Depakote] 500 mg PO BEDTIME 12/03/17 [place] Carbonate 600 mg PO BEDTIME 12/03/17 Risperidone [Risperdal] 1 mg PO Q12H 12/03/17 Disposition Discussed With: Patient
[2018-01-29] MEDS ORDERED: ATIVAN PO STA (12:48)
[2018-01-29] MEDS ORDERED: ATARAX PO STA (15:06)
== END 2018-01-29 16:55 | disposition home or self-care (01) ==
LOC: ED 11:17
DX: F22 Delusional disorders (principal); F41.9 Anxiety disorder, unspecified; F17.210 Nicotine dependence, cigarettes, uncomplicated
CPT/HCPCS: 36415; 80053; 80306; 80307; 84443; 85025; 99284

== ENCOUNTER 2018-04-25 11:36 | Outpatient (CLI) ==
--- NOTE | 2018-04-25 12:28 | CT ---
EXAM: CT of the head without contrast History: Headache. Comparison: Head CT 12/03/2017 Technique: Multiplanar CT images through the head were obtained without the administration of IV con trast Findings: The visualized paranasal sinuses and mastoid air cells are clear in general. No acute tyson varial abnormalities. Intracranially the ventricular and cisternal spaces are normal in size, shape and configuration for a patient of this age. No dominant mass or midline shift. No hydrocephalous. No acute intracranial h emorrhage or abnormal extraaxial fluid collections. Impression: No acute intracranial process.
== END 2018-04-25 11:37 | disposition home or self-care (01) ==
LOC: RAD 11:36
PROVIDERS: ATTEND Nurse Practitioner Family
DX: R51 Headache (principal)

== ENCOUNTER 2018-05-10 13:41 | Outpatient (POV) | END 2018-05-10 17:00 | LOC: OUTPT 13:41 | PROVIDERS: ATTEND Otolaryngology | DX: H91.90 Unspecified hearing loss, unspecified ear (principal) ==

== ENCOUNTER 2018-05-26 11:39 | Outpatient (CLI) | END 2018-05-26 11:40 | disposition home or self-care (01) | LOC: RHC-LAB 11:39 | PROVIDERS: ATTEND Emergency Medicine | DX: J06.9 Acute upper respiratory infection, unspecified (principal) | CPT/HCPCS: 87651 ==

== ENCOUNTER 2018-06-01 10:05 | Outpatient (CLI) ==
--- NOTE | 2018-06-01 10:40 | DI ---
EXAM: Two views of the chest. History: Bronchitis. Comparison: Chest radiograph 08/04/2016 Findings: Heart size is normal. No focal consolidation. No appreciable pleural fluid and no pneumo thorax. No acute osseous abnormalities. Impression: No acute cardiopulmonary process.
--- NOTE | 2018-06-01 10:55 | CT ---
EXAM: CT of the abdomen pelvis without contrast History: Hematuria. Comparison: CT abdomen pelvis 08/04/2016 Technique: Multiplanar CT images through the abdomen pelvis were obtained without the administration of IV contrast. Findings: Minimal tree in bud opacities are seen within the lower lungs with mild lower lung bronchi al wall thickening. No acute osseous abnormalities. No discrete gallstones identified by CT. No focal liver or splenic lesions. Bilateral nephrolithias is measuring up to 2 mm on the right and 3 mm on the left. No hydronephrosis. No perinephric strand ing. No peripancreatic inflammation. Adrenal glands are unremarkable. The appendix is not well vis ualized but there are no secondary signs of appendicitis. No free air and no ascites. No bladder wa ll thickening. Uterus is not seen. Moderate colonic stool. Impression: 1. No acute intra-abdominal or pelvic process. 2. Nonobstructing bilateral nephrolithiasis. 3. Moderate colonic stool. 4. Mild inflammatory process within the lung bases.
== END 2018-06-01 10:06 ==
LOC: RAD 10:05
PROVIDERS: ATTEND Family Medicine
DX: R31.9 Hematuria, unspecified (principal); Z87.442 Personal history of urinary calculi; J40 Bronchitis, not specified as acute or chronic; Z87.09 Personal history of other diseases of the respiratory system
CPT/HCPCS: 74176; 87086

== ENCOUNTER 2018-06-01 10:33 | Outpatient (CLI) | END 2018-06-01 10:34 | LOC: FCC-LAB 10:33 | PROVIDERS: ATTEND Family Medicine | DX: R31.9 Hematuria, unspecified (principal) | CPT/HCPCS: 87086 ==

== ENCOUNTER 2018-06-08 14:30 | Outpatient (CLI) | END 2018-06-08 14:31 | disposition home or self-care (01) | LOC: FCC-LAB 14:30 | PROVIDERS: ATTEND Family Medicine | DX: R10.9 Unspecified abdominal pain (principal); R31.9 Hematuria, unspecified | CPT/HCPCS: 36415; 80053; 81001; 85025 ==

== ENCOUNTER 2019-01-17 11:00 | Outpatient (RCR) ==
--- NOTE | 2019-01-08 13:33 | RS.OPPTEV2 ---
Date of Note: 01/05/19 Visit #: 1 Number of visits approved by Insurance: pending Date of Evaluation: 04/09/16 Payer Source: Medicaid Date of Onset/Injury/Change in Status: 03/11/16 Surgery Performed?: No Treatment Diagnosis: back pain, cervico thoracic pain, increased thoracic History of Condition/Mechanism of Injury:: pt with long hx of low and mid back pain. pt goes to pain management. 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 States he has had PT on and off throughout his life. States he is scheduled to have injections on 01/19/19 Treatment Side (optional): N/A *Precautions: n/a Medical History Medical History: Unremarkable Medical History Comments:: postural kyphosis Smoking Status: Current every day smoker Hx Home Medications: risperdol, klonopin, lithium, trazodone, cogentin, celexa Patient's Goals: decrease pain Pain Assessment - Pain Description Pain Location: low and mid back pain Pain Description: Radiating, Aching Current Pain Intensity: 8 Worst Pain Intensity: 10 Other Comments regarding Pain:: radiates into B thighs Functional Outcome Measure Oswestry LBP: 17 - G Codes & Severity Modifier G Codes & Modifier: n/a Source of G Code score: n/a Observation - Observation Inspection: pt with significant increased thoracic kyphosis and scoliosis. pt with tightness B hamstring and piriformis L worse than R. Posture: Forward Head, Increased Thoracic Kyphosis, Decreased Lumbar Lordosis Handedness: Right Gait - Gait Pattern Gait Comments: pt amb without AD. pt amb with flexed posture General Range of Motion: BUE WFL's. BLE WFL's Muscle Strength: BUE 5/5. BLE 5/5 - ROM Lumbar Flexion: Hand reach to patellae Sidebending to Left: Reach to Lateral Joint Line Sidebending to Right: Reach to Lateral Joint Line Lumbar Spine ROM Limitations: Soft Tissue Tightness, Muscle Weakness, Pain Comments: pt with limited lumbar ROM with pain with ROM worse with flex than ext. - Strength Trunk Extension: 4- Good- Trunk Flexion: 3- Fair- Trunk Lateral Flexion: 3 Fair Trunk Rotation: 3 Fair - Special Tests BRITNEY Test: Negative Left, Negative Right SLR Test: Positive Left, Positive Right Elba's Sign Test: Negative Right Palpation Palpation Findings: Tenderness, Muscle Guarding Comments:: pt with tenderness and muscle guarding lower thoracic and lumbar paraspinals with trigger points on R lumbar area Sensation - Sensation Right Upper Extremity: Intact/Normal Left Upper Extremity: Intact/Normal Right Lower Extremity: Intact/Normal Left Lower Extremity: Intact/Normal Balance - Sitting Balance Static Sitting Balance: Normal Dynamic Sitting Balance: Normal - Standing Balance Static Standing Balance: Good Dynamic Standing Balance: Good - Treatment Modality: Electrical Stim Unattended Parameters/Method Applied: IFC x 20 mins at 16ma Treatment Area: lumbar area focusing on R side Patient Position: Left Sidelying - Heat/Cryotherapy Treatment: Cryotherapy Comments:: lumbar area Interventions - Exercise/Activities/Manual Therapy Exercises/Activities: pt performed pelvic tilt, hamstring stretch, piriformis stretch, knee to chest, resisted hip abd, isometric hip add Manual Therapy: Na HOME EXERCISE PROGRAM: pt given written HEP including pelvic tilt, hamstring stretch, piriformis stretch, knee to chest, resisted hip abd, isometric hip add - Charges Timed Code Treatment Minutes: 44 Total Treatment Time: 62 Procedures billed for this date of service:: eval low, estim unattended, cp EVALUATION COMPLEXITY LEVEL EVALUATION COMPLEXITY LEVEL: HISTORY: Low, EXAM OF BODY SYSTEMS: Low, CLINICAL PRESENTATION: Low, CLINICAL DECISION MAKING: Low Assessment Assessment: pt presents with low and mid back pain as well as flexed posture, pt with decreased lumbar ROM as well as muscle tightness BLE. Patient Education: Home Exercise Program, Education of Plan of Care Rehab Potential: Good Short Term Goals Goal #1: pt independent with initial HEP Goal to be met by: 01/19/19 Goal #2: pt with improved flexibility B hamstring and piriformis Goal to be met by: 01/19/19 Goal #3: Improved ROM lumbar spine Goal to be met by: 01/19/19 Goal #4: Imp. posture awareness, get shlds back against wall to perform stretch Goal to be met by: 01/19/19 Claims Adjustor Goals Goal #1: report increased abilities to perform normal daily activities w less pain Goal to be met by: 02/02/19 Goal #2: pt rate pain <6/10 Goal to be met by: 02/02/19 Plan - Treatment to be Provided Procedures: Therapeutic Exercises, Manual Therapy, Massage, Patient Education Modalities: Electrical Stimulation, Ultrasound/Phonophoresis, Cryotherapy, Hot Packs - Treatment Plan Frequency: 2 X week Duration: 4 weeks Dates of Claims Adjustor Goals: 02/02/19 Expiration date of current Insurance Approval:: pending - Treatment Code (1) Low back pain Code(s): M54.5 - LOW BACK PAIN Qualifiers: Chronicity: chronic Back pain laterality: unspecified Sciatica presence: with sciatica Sciatica laterality: bilateral sciatica Qualified Code(s): M54.41 - Lumbago with sciatica, right side; M54.42 - Lumbago with sciatica, left side; G89.29 - Other chronic pain (2) Pain of cervicothoracic region of spine Code(s): [id number] - (3) Muscle tightness Code(s): M62.89 - OTHER SPECIFIED DISORDERS OF MUSCLE
--- NOTE | 2019-01-08 14:47 | RS.OPPTDN ---
Subjective Date of Note: 01/08/19 Visit #: 2 Number of visits approved by Insurance: Requested 8 Date of Evaluation: 04/09/16 Payer Source: Medicaid Treatment Diagnosis: back pain, cervico thoracic pain, increased thoracic Current Subjective/complaints:: Patient states treatment last session helped him a lot. Reports he takes pain medication orally and uses "pain cream" that Dr. Faye ordered him that helped him. He says his sleep is disturbed and tries to sleep on his side. He rates his pain 7/10. *Precautions: n/a - Treatment Modality: Electrical Stim Unattended Parameters/Method Applied: hivolt 4 large pads @ 130-165 pk volts x 20 mins Patient Position: Supine - Heat/Cryotherapy Treatment: Hot Pack Comments:: with estim Interventions - Exercise/Activities/Manual Therapy Exercises/Activities: Patient receives passive stretching: SKTC, HS, piriformis , fig 4, lower trunk rotation, bilaterally x 4. Patient performs: pillow squeezes, isometric hip abd/flexion x 8. Sitting EOB: scap adduction, postural techniques for erect posture, shoulder shrugs, red tband for scap retraction. Began patient education and reviewed HEP. Total minutes of Exercise: 16 Manual Therapy: Na HOME EXERCISE PROGRAM: pt given written HEP including pelvic tilt, hamstring stretch, piriformis stretch, knee to chest, resisted hip abd, isometric hip add - Charges Timed Code Treatment Minutes: 18 Total Treatment Time: 38 Procedures billed for this date of service:: hp, estim (un), ex Assessment: Patient experienced decreased pain since first session of estim and does so today. He appears to kiley all therex well with having mild soreness and general mm fatigue. He should benefit from further therex to strengthen the LB and thoracic region as well as modalities to ease pain. Patient Education: Education of diagnosis, Body/Joint mechanics, Home Exercise Program, Education of Plan of Care Patient demonstrates compliance with HEP?: Yes Short Term Goals Goal #1: pt independent with initial HEP Goal to be met by: 01/19/19 Goal #2: pt with improved flexibility B hamstring and piriformis Goal to be met by: 01/19/19 Goal #3: Improved ROM lumbar spine Goal to be met by: 01/19/19 Goal #4: Imp. posture awareness, get shlds back against wall to perform stretch Goal to be met by: 01/19/19 Ict Trainer Goals Goal #1: report increased abilities to perform normal daily activities w less pain Goal to be met by: 02/02/19 Goal #2: pt rate pain <6/10 Goal to be met by: 02/02/19 Goal #3: Patient will display normal right leg strength. Goal to be met by: 05/07/16 Plan Dates of Prison Goals: 02/02/19 Expiration date of current Insurance Approval:: 02/02/19 PLAN: Cont BIW
--- NOTE | 2019-01-12 10:33 | RS.CXNS ---
Date of scheduled appointment: 01/12/19 Type: No Show
--- NOTE | 2019-01-15 15:11 | RS.OPPTDN ---
Subjective Date of Note: 01/15/19 Visit #: 3 Number of visits approved by Insurance: Pending Date of Evaluation: 04/09/16 Payer Source: Medicaid Treatment Diagnosis: back pain, cervico thoracic pain, increased thoracic Current Subjective/complaints:: Patient reports he is working on HEP but having some trouble with hamstring stretching. *Precautions: n/a Pain Assessment - Pain Description Pain Location: lowback Current Pain Intensity: moderate - Treatment Modality: Electrical Stim Unattended Parameters/Method Applied: [id number] HVGC to 160p.v. with 4 large pads cross current to the lowback with HP. Patient Position: Left Sidelying - Heat/Cryotherapy Treatment: Hot Pack (with Estim) Interventions - Exercise/Activities/Manual Therapy Exercises/Activities: Assisted stretching of SKTC, HS, piriformis, fig 4, and lower trunk rotation, bilaterally. Isometnric hip add, isometric hip abd, isometnric hip flexion. Sitting blue theraband scap retraction. Postural correction at wall. Blue tband for scap retraction at wall. Modified wall angles. Doorway anterior chest stretch, 3 position. Reveiwed HEP and patient given copy of new exercises. Total minutes of Exercise: 17mins Manual Therapy: Na HOME EXERCISE PROGRAM: pt given written HEP including pelvic tilt, hamstring stretch, piriformis stretch, knee to chest, resisted hip abd, isometric hip add. Wall angels. Doorway anterio chest stretch. - Objective Findings Observations,measurements,etc.: Marked hamstring tightness bilaterally with hip flexion to only 45 degrees approx. - Charges Timed Code Treatment Minutes: 17mins Total Treatment Time: 42mins Procedures billed for this date of service:: HP, Estim unattended, EX Assessment: Patient having difficulty but progressing postural exercises. Patient Education: Education of diagnosis, Body/Joint mechanics, Home Exercise Program, Activity Modification Patient demonstrates compliance with HEP?: Yes Short Term Goals Goal #1: pt independent with initial HEP Goal to be met by: 01/19/19 Progress towards Goal:: Progressing Goal #2: pt with improved flexibility B hamstring and piriformis Goal to be met by: 01/19/19 Goal #3: Improved ROM lumbar spine Goal to be met by: 01/19/19 Goal #4: Imp. posture awareness, get shlds back against wall to perform stretch Goal to be met by: 01/19/19 Industrial Training Specialist Goals Goal #1: report increased abilities to perform normal daily activities w less pain Goal to be met by: 02/02/19 Goal #2: pt rate pain <6/10 Goal to be met by: 02/02/19 Goal #3: Patient will display normal right leg strength. Goal to be met by: 05/07/16 Plan Dates of Detention Goals: 02/02/19 Expiration date of current Insurance Approval:: 02/02/19 PLAN: Progress postural and trunk strengthening exercise to reduce pain and increase functional activity level.
--- NOTE | 2019-01-17 13:11 | RS.OPPTDN ---
Subjective Date of Note: 01/17/19 Visit #: 4 Number of visits approved by Insurance: 8 Date of Evaluation: 04/09/16 Payer Source: Medicaid Treatment Diagnosis: back pain, cervico thoracic pain, increased thoracic Current Subjective/complaints:: Patient says his back pain is better. Reports he has new medication and between therapy and the meds, he is gaining relief. He says he is looking into purchasing a TENS unit, but is weighing the cost. *Precautions: n/a Pain Assessment - Pain Description Pain Location: 06/02 prior to treatment, 04/02 afterwards - Treatment Modality: Electrical Stim Unattended Parameters/Method Applied: IFC @ 19 pk volts x 20 mins Treatment Area: bilateral lumbar and mid thoracic paraspinals Patient Position: Right Sidelying - Heat/Cryotherapy Treatment: Hot Pack (with estim) Interventions - Exercise/Activities/Manual Therapy Exercises/Activities: Assisted stretching of SKTC, HS, piriformis, fig 4, and lower trunk rotation, bilaterally. Isometric hip add with ball squeezes, isometric hip abd, isometnric hip flexion. Bridging, QS, 2x10 and SLR 2x5.Sitting blue theraband scap retraction. Postural correction at wall. Reveiwed HEP and patient given copy of new exercises. Total minutes of Exercise: 17 Manual Therapy: Na HOME EXERCISE PROGRAM: pt given written HEP including pelvic tilt, hamstring stretch, piriformis stretch, knee to chest, resisted hip abd, isometric hip add. Wall angels. Doorway anterio chest stretch. - Charges Timed Code Treatment Minutes: 17 Total Treatment Time: 37 Procedures billed for this date of service:: hp, estim (un), ex Assessment: Patient experiencing less back pain through medication change and therapy. He is able to kiley all progressive therex well. He is compliant with HEP at this point. Patient Education: Body/Joint mechanics, Home Exercise Program, Education of Plan of Care Patient demonstrates compliance with HEP?: Yes Short Term Goals Goal #1: pt independent with initial HEP Goal to be met by: 01/19/19 Progress towards Goal:: Progressing Goal #2: pt with improved flexibility B hamstring and piriformis Goal to be met by: 01/19/19 Progress towards Goal:: Progressing Goal #3: Improved ROM lumbar spine Goal to be met by: 01/19/19 Progress towards Goal:: Progressing Goal #4: Imp. posture awareness, get shlds back against wall to perform stretch Goal to be met by: 01/19/19 Key Entry Operator Goals Goal #1: report increased abilities to perform normal daily activities w less pain Goal to be met by: 02/02/19 Goal #2: pt rate pain <6/10 Goal to be met by: 02/02/19 Goal #3: Patient will display normal right leg strength. Goal to be met by: 05/07/16 Plan Dates of [facility] Goals: 02/02/19 Expiration date of current Insurance Approval:: 02/02/19 PLAN: Patient to continue BIW
== END 2019-01-21 23:59 ==
PROVIDERS: ATTEND Family Medicine
DX: M40.03 Postural kyphosis, cervicothoracic region (principal)

== ENCOUNTER 2019-01-25 11:00 | Outpatient (RCR) ==
--- NOTE | 2019-01-23 13:28 | RS.OPPTDN ---
Subjective Date of Note: 01/23/19 Visit #: 5 Number of visits approved by Insurance: pending Date of Evaluation: 04/09/16 Payer Source: Medicaid Treatment Diagnosis: back pain, cervico thoracic pain, increased thoracic Current Subjective/complaints:: Patient reports his back pain is better. States he is working on HEP and seems to be able to do a few more activities around his home. *Precautions: n/a Pain Assessment - Pain Description Pain Location: low to mid back Current Pain Intensity: 6/10 - Treatment Modality: Electrical Stim Unattended Parameters/Method Applied: [id number] HVGC to 160p.v. 4 large pads cross current to the lumbar paraspinals with HP prior to EX. Patient Position: Left Sidelying - Heat/Cryotherapy Treatment: Hot Pack (with Estim ) Interventions - Exercise/Activities/Manual Therapy Exercises/Activities: Standing cable pulleys 20# for scap retraction. Wall slides with large ball. Postural correction at wall. Isometric cervical retraction with ball at wall. Doorway anterior chest stretch, 3 positions. Total minutes of Exercise: 14mins Manual Therapy: Na HOME EXERCISE PROGRAM: pt given written HEP including pelvic tilt, hamstring stretch, piriformis stretch, knee to chest, resisted hip abd, isometric hip add. Wall angels. Doorway anterio chest stretch. - Charges Timed Code Treatment Minutes: 14mins Total Treatment Time: 39mins Procedures billed for this date of service:: HP, Estim unattended, EX Assessment: Patient reporting some increase in activity level, but has a mod to high pain rating. Patient Education: Body/Joint mechanics, Home Exercise Program, Activity Modification Patient demonstrates compliance with HEP?: Yes Short Term Goals Goal #1: pt independent with initial HEP Goal to be met by: 01/19/19 Progress towards Goal:: Met Goal #2: pt with improved flexibility B hamstring and piriformis Goal to be met by: 01/19/19 Progress towards Goal:: Progressing Goal #3: Improved ROM lumbar spine Goal to be met by: 01/19/19 Progress towards Goal:: Progressing Goal #4: Imp. posture awareness, get shlds back against wall to perform stretch Goal to be met by: 01/19/19 Progress towards Goal:: Progressing Executive Marketing Assistant Goals Goal #1: report increased abilities to perform normal daily activities w less pain Goal to be met by: 02/02/19 Goal #2: pt rate pain <6/10 Goal to be met by: 02/02/19 Goal #3: Patient will display normal right leg strength. Goal to be met by: 05/07/16 Plan Dates of Executive Marketing Assistant Goals: 02/02/19 Expiration date of current Insurance Approval:: 02/02/19 PLAN: Continue and progress postural correction and trunk strengthening exericse.
--- NOTE | 2019-01-25 13:51 | RS.OPPTDN ---
Subjective Date of Note: 01/25/19 Visit #: 6 Number of visits approved by Insurance: Pending Date of Evaluation: 04/09/16 Payer Source: Medicaid Treatment Diagnosis: back pain, cervico thoracic pain, increased thoracic Current Subjective/complaints:: Reports neck and back pain is higher and rates at 8 of 10 today. States he is working on HEP and will continue. Agrees to follow-up with physician. *Precautions: n/a Pain Assessment - Pain Description Pain Location: neck, low, mid, and upper back Current Pain Intensity: 06/02 - Treatment Modality: Electrical Stim Unattended Parameters/Method Applied: [id number] HVGC to 165p.v. with 4 large pads, cross current, to bilateral upper and lower lumbar paraspinals with HP prior to EX. Patient Position: Left Sidelying - Heat/Cryotherapy Treatment: Hot Pack (with Estim ) Interventions - Exercise/Activities/Manual Therapy Exercises/Activities: In supine, assisted hamstring stretching, corpse pose for anterior chest stretch, and LTR with arms outstretched. Wall slides with large ball. Postural correction at wall. Doorway anterior chest stretch, 3 positions. Blue theraband for bilateral shoulder ext and triceps press. Black theraband for scap retraction. Reviewed HEP and patient given new therabands for progression. Total minutes of Exercise: 18mins Manual Therapy: Na HOME EXERCISE PROGRAM: pt given written HEP including pelvic tilt, hamstring stretch, piriformis stretch, knee to chest, resisted hip abd, isometric hip add. Wall angels. Doorway anterio chest stretch. - Charges Timed Code Treatment Minutes: 18mins Total Treatment Time: 41mins Procedures billed for this date of service:: HP, Estim unattended, EX Assessment: Patient appears to be working on HEP as instructed. Patient is again reporting a high pain rating and will need to follow-up with physician. Patient Education: Education of diagnosis, Body/Joint mechanics, Home Exercise Program, Activity Modification Patient demonstrates compliance with HEP?: Yes Short Term Goals Goal #1: pt independent with initial HEP Goal to be met by: 01/19/19 Progress towards Goal:: Met Goal #2: pt with improved flexibility B hamstring and piriformis Goal to be met by: 01/19/19 Progress towards Goal:: Progressing Goal #3: Improved ROM lumbar spine Goal to be met by: 01/19/19 Progress towards Goal:: Progressing Goal #4: Imp. posture awareness, get shlds back against wall to perform stretch Goal to be met by: 01/19/19 Progress towards Goal:: Progressing Jail Goals Goal #1: report increased abilities to perform normal daily activities w less pain Goal to be met by: 02/02/19 Progress towards goal: Not Met Goal #2: pt rate pain <6/10 Goal to be met by: 02/02/19 Progress towards goal: Not Met Goal #3: Patient will display normal right leg strength. Goal to be met by: 02/02/19 Progress towards goal: Progressing Plan Dates of Bilingual Interpreter Goals: 02/02/19 Expiration date of current Insurance Approval:: 02/02/19 PLAN: Patient being referred back to physician due to high pain rating. He has been instructed to continue to work on postural correction exercises.
--- NOTE | 2019-02-01 15:22 | RS.CSNOTE ---
PT Case Note Date of Note: 02/01/19 Title of document: Phone call regarding new order. Note: Received a new order for PT for cervical pain. Called and spoke with Axel with Dr. Faye to inform her we D/C'd pt on 01/25/19 after 6 PT visits with no improvement and that pt has a postural HEP. She stated she would notify the MD. Number of visits approved by Insurance: n/a Expiration date of current Insurance Approval:: n/a
--- NOTE | 2019-02-06 09:32 | RS.QUICKDC ---
Discharge from PT Date of Discharge: 02/06/19 Number of Visits: 6 Reason for Discharge: Patient seen for 6 sessions through 01/25/19 with little progress. Patient reported pain at 8/10 on last session. He did have a basic HEP he was instructed to continue. Patient was discharged with HEP due to lack of progress.
== END 2019-02-20 23:59 ==
PROVIDERS: ATTEND Family Medicine
DX: M40.03 Postural kyphosis, cervicothoracic region (principal); M54.42 Lumbago with sciatica, left side; G89.29 Other chronic pain; M62.89 Other specified disorders of muscle